=== PATIENT | male | born 1955 | race Caucasian/White ===

== ENCOUNTER 2020-06-21 18:27 | Emergency (ER) | payer OTHER, SELFPAY ==
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
--- NOTE | 2020-06-21 18:31 | PC.NURSE ---
Trauma alert called.
[2020-06-21 18:44] VITALS: BP 184/98; PULSE 98; RESP 18; O2SAT 95
--- NOTE | 2020-06-21 18:45 | PC.NURSE ---
[facility] called by Rafi Reynolds.
--- NOTE | 2020-06-21 18:55 | PC.NURSE ---
[facility] has arrived.
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
--- NOTE | 2020-06-21 18:57 | PC.NURSE ---
Called for a disk on pt form radiology. Facesheet and PCS printed.
--- NOTE | 2020-06-21 18:59 | PC.NURSE ---
[place] [facility] Called for trauma consult to speak with Dr Metzger.
[2020-06-21 19:02] VITALS: BMI 24.4
[2020-06-21 19:05] LABS: Anion Gap 12.9 mEq/L (5-15); Basophils % 0.3 % (0.1-2.0); Blood Urea Nitrogen 36 mg/dl (9-20); Calcium 9.1 mg/dl (8.4-10.2); Carbon Dioxide 24 mmol/L (22.0-30.0); Chloride 101 mmol/L (98-107); Creatinine Clearance Estimated 86 mL/min (50-200); Eosinophils # 0.1 K/mm3 (0.0-0.4); Eosinophils % 1.2 % (0.1-12.0); Estimated Glomerular Filt Rate 75 ml/min (>60); GFR (African American) 91 ML/MIN (>60); Glucose 113 mg/dl (74-100); Hematocrit 38.5 % (42.0-52.0); Hemoglobin 12.8 g/dL (14.1-18.0); Lymphocytes # 0.7 K/mm3 (0.7-4.5); Lymphocytes % 6.4 % (10-50); Mean Corpuscular HGB Conc 33.2 g/dL (31.8-35.4); Mean Corpuscular Hemoglobin 30.7 pg (27.0-31.2); Mean Corpuscular Volume 92.6 fl (80-94); Mean Platelet Volume 7.7 fl (7.4-10.4); Monocytes # 0.5 K/mm3 (0.1-1.0); Neutrophils # 10.2 K/mm3 (1.8-7.8); Neutrophils % 88.2 % (37.0-80.0); Platelet Count 171 K/mm3 (142-424); Potassium 3.9 mmoL/L (3.5-5.1); Red Blood Count 4.16 M/mm3 (4.60-6.20); Red Cell Distribution Width 15.3 % (11.5-17.5); Sodium 134 mmol/L (136-145); White Blood Count 11.6 K/mm3 (4.8-10.8)
[2020-06-21 19:06] LABS: MANUAL DIFFERENTIAL MANUAL DIFFERENTIAL (MANUAL DIFF)
[2020-06-21 19:18] VITALS: BP 136/89; PULSE 89; RESP 20; TEMP 36.9; O2SAT 95
[2020-06-21 19:19] LABS: Lymphocytes % 6 % (10-50); Monocytes % 5 % (2-9); Neutrophils % 89 % (42-76); Platelet Estimate Normal; RBC Morphology Normal; Total Cells Counted 100
--- NOTE | 2020-06-21 19:19 | PC.NURSE ---
Radiology report given to
[2020-06-21 19:20] LABS: POC Glucose,Bedside 99 (70-110)
== END 2020-06-21 19:20 | disposition short-term general hospital (02) ==
PROVIDERS: Emergency Provider Emergency Medicine
DX: S00.83XA Contusion of other part of head, initial encounter (principal); S29.9XXA Unspecified injury of thorax, initial encounter; T07.XXXA Unspecified multiple injuries, initial encounter; V20.0XXA Motorcycle driver injured in collision with pedestrian or animal in nontraffic accident, initial encounter; Y92.488 Other paved roadways as the place of occurrence of the external cause
CPT/HCPCS: 71045; 72170; 80048; 82962; 85007; 85025; 96374; 96375; 99282; J2405